=== PATIENT | female | born 1955 | race Caucasian/White ===

== ENCOUNTER 2022-09-13 18:39 | Emergency (ER) | payer BC ==
[~2022-09-13] VITALS: Ht 149.9 cm; Wt 51.3 kg
[2022-09-13] MEDS ORDERED: OXYCODONE/APAP 5-325 MG TABLET PO ONE (19:00)
[2022-09-13] MEDS ORDERED: OXYCODONE/APAP 5-325 MG TABLET ONE (19:07)
[2022-09-13] MEDS ORDERED: OXYC-128 PO (20:07)
--- NOTE | 2022-09-13 20:14 | NUR ---
Patient discharged to home in stable condition. Written and verbal after care instructions given. Patient verbalizes understanding of instructions. Stressed follow up or return to ER for worsening s/s. Patient is awake and A/Ox4, walking with steady gait, she was accompainied by her .
[2022-09-13 20:17] VITALS: BP 146/86
== END 2022-09-13 20:18 | disposition home or self-care (01) ==
LOC: ER 18:41
DX: S20.214A Contusion of middle front wall of thorax, initial encounter (principal); V49.50XA Passenger injured in collision with unspecified motor vehicles in traffic accident, initial encounter; Y92.410 Unspecified street and highway as the place of occurrence of the external cause; E78.5 Hyperlipidemia, unspecified; J45.909 Unspecified asthma, uncomplicated; F41.9 Anxiety disorder, unspecified; Z88.2 Allergy status to sulfonamides
CPT/HCPCS: 71120; A4663